=== PATIENT | female | born 1965 | race Caucasian/White ===

== ENCOUNTER → 2016-11-24 | Outpatient (CLI) | payer BC ==
--- NOTE | 2016-11-25 13:59 | MM ---
Reason for exam: screening (asymptomatic). Last mammogram was performed 1 year and 1 month ago. History: Family history of breast cancer in maternal aunt at age 40. Taking hormonal contraceptives for 8 years beginning at age 40. Physical Findings: A clinical breast exam by your physician is recommended on an annual basis and results should be correlated with mammographic findings. MG Screening Mammo w CAD Bilateral CC and MLO view(s) were taken. Prior study comparison: October 17, 2015, right breast MG 3d diag mammo w/cad RT. November 09, 2014, bilateral MG screening mammo w CAD. No significant changes when compared with prior studies. ASSESSMENT: Benign, BI-RAD 2 RECOMMENDATION: Routine screening mammogram of both breasts in 1 year.
== END | disposition home or self-care (01) ==
LOC: RADMAMWWP 08:14
PROVIDERS: ATTEND Family Medicine
DX: Z12.31 Encounter for screening mammogram for malignant neoplasm of breast (principal)

== ENCOUNTER → 2017-06-03 | Outpatient (CLI) | payer BC ==
--- NOTE | 2017-06-03 13:14 | US ---
EXAMINATION TYPE: US venous doppler duplex LE RT DATE OF EXAM: 06/03/2017 12:39 PM COMPARISON: NONE CLINICAL HISTORY: I82.531 DVT. Right calf pain SIDE PERFORMED: Right TECHNIQUE: The lower extremity deep venous system is examined utilizing real time linear array sonog imtiaz with graded compression, doppler sonography and color-flow sonography. VESSELS IMAGED: External Iliac Vein (EIV) Common Femoral Vein Deep Femoral Vein Greater Saphenous Vein * Femoral Vein Popliteal Vein Small Saphenous Vein * Proximal Calf Veins (* superficial vessels) Right Leg: Appears negative for DVT Grayscale, color doppler, spectral doppler imaging performed of the deep veins of the right lower ext remity. There is normal flow, compressibility, vascular waveforms. IMPRESSION: No ultrasound evidence for acute DVT in the right lower extremity.
== END | disposition home or self-care (01) ==
LOC: RADUSWWP 12:11
PROVIDERS: ATTEND Family Medicine
DX: I82.531 Chronic embolism and thrombosis of right popliteal vein (principal)

== ENCOUNTER → 2018-02-03 | Outpatient (CLI) | payer BC ==
--- NOTE | 2018-02-03 13:44 | MM ---
Reason for exam: screening (asymptomatic). Last mammogram was performed 1 year and 2 months ago. History: Family history of breast cancer in maternal aunt at age 40. Taking hormonal contraceptives for 8 years beginning at age 40. Physical Findings: A clinical breast exam by your physician is recommended on an annual basis and results should be correlated with mammographic findings. MG Screening Mammo w CAD Bilateral CC and MLO view(s) were taken. Prior study comparison: November 24, 2016, bilateral MG screening mammo w CAD. October 17, 2015, right breast MG 3d diag mammo w/cad RT. The breast tissue is heterogeneously dense. This may lower the sensitivity of mammography. Finding: There is a 8 mm equal density (isodense), indistinct round mass located 9 cm from the nipple in the upper outer quadrant, middle position of the right breast. New finding since November 24, 2016 and October 17, 2015. ASSESSMENT: Incomplete: need additional imaging evaluation, BI-RAD 0 RECOMMENDATION: Special view mammogram of the right breast. If lesion persists on supplemental views, image directed ultrasound is recommended. [facility] will attempt to contact patient to return for supplemental views and ultrasound if indicated.
== END | disposition home or self-care (01) ==
LOC: RADMAMWWP 06:58
PROVIDERS: ATTEND Family Medicine
DX: Z12.31 Encounter for screening mammogram for malignant neoplasm of breast (principal)
CPT/HCPCS: 77067

== ENCOUNTER → 2018-02-11 | Outpatient (CLI) | payer BC ==
--- NOTE | 2018-02-11 10:08 | MM ---
Reason for exam: additional evaluation requested from abnormal screening. Last mammogram was performed less than 1 month ago. History: Family history of breast cancer in maternal aunt at age 40. Taking hormonal contraceptives for 8 years beginning at age 40. Physical Findings: Nurse did not find any significant physical abnormalities on exam. MG 3D Work Up W/Cad RT Spot compression CC, spot compression MLO, CC with magnification, MLO with magnification, and ML view(s) were taken of the right breast. Prior study comparison: February 03, 2018, bilateral MG screening mammo w CAD. November 24, 2016, bilateral MG screening mammo w CAD. The breast tissue is heterogeneously dense. This may lower the sensitivity of mammography. On additional views the more anterior focal asymmetry resolves however the more posterior right upper outer quadrant middle depth focal asymmetry persists 9cm from nipple. These results were verbally communicated with the patient and result sheet given to the patient on 02/11/18. ASSESSMENT: Incomplete: need additional imaging evaluation, BI-RAD 0 RECOMMENDATION: Ultrasound of the right breast. (upper outer quadrant)
--- NOTE | 2018-02-11 10:36 | USB ---
Reason for exam: additional evaluation requested from abnormal screening. History: Family history of breast cancer in maternal aunt at age 40. Taking hormonal contraceptives for 8 years beginning at age 40. US Breast Workup Limited RT Right limited breast ultrasound including focal area of concern, retroareolar and axilla demonstrates a 6mm dilated duct at 9 o'clock. Additional 3D spot CC/MLO views demonstrate the focal asymmetry to resolve on MLO however they improve on CC and therefore precautionary 6 month follow up recommended. These results were verbally communicated with the patient and result sheet given to the patient on 02/11/18. ASSESSMENT: Probably benign, BI-RAD 3 RECOMMENDATION: Follow-up diagnostic mammogram of the right breast in 6 months.
== END | disposition home or self-care (01) ==
LOC: RADMAMWWP 07:00
PROVIDERS: ATTEND Family Medicine
DX: R92.8 Other abnormal and inconclusive findings on diagnostic imaging of breast (principal)
CPT/HCPCS: 77061; 77065

== ENCOUNTER 2018-09-19 11:25 | Emergency (ER) | payer BC ==
[2018-09-19 11:38] VITALS: BP 127/83; PULSE 75; RESP 20; TEMP 98.1
--- NOTE | 2018-09-19 12:40 | XR ---
EXAMINATION TYPE: XR finger RT , 3 VIEWS DATE OF EXAM ORDERED: 09/19/2018 HISTORY: Pain. COMPARISON: None. FINDINGS: No fracture or dislocation is seen. There is mild flexion in all projections of the DIP orion int of the long finger. This may relate to tendinous injury. IMPRESSION: NO ACUTE OSSEOUS LESION.
[2018-09-19] MEDS ORDERED: ACET/COD 300 MG/30 MG STARTER PACK 6 TAB BTL PO STA (12:51)
--- NOTE | 2018-09-19 12:53 | ED ---
Upper Extremity HPI - General Chief Complaint: Extremity Injury, Upper Stated Complaint: finger injury Time Seen by Provider: 09/19/18 11:50 Source: patient, RN notes reviewed Mode of arrival: wheelchair Limitations: no limitations - History of Present Illness Initial Comments: 52-year-old female presents emergency Department chief complaint of right hand middle finger injury. Patient states that she went down to grab her laundry basket and states that she hyperextended it. Patient states that she cannot move the distal portion of her finger. Patient denies any prior injuries. She is right-hand dominant. Patient states that the pain radiates up into her MCP region. - Related Data Home Medications Medication Instructions Recorded Confirmed Atorvastatin [Lipitor] 20 mg PO DAILY 01/23/15 01/25/15 Metoprolol Tartrate 25 mg PO DAILY 01/23/15 01/25/15 Multivit,Ca,Min/D3/Herbal #181 1 tab PO DAILY 01/23/15 01/25/15 [Estroven (Day or Night)] Spironolactone 50 mg PO DAILY 01/23/15 01/25/15 medroxyPROGESTERone [Depo-Provera] 150 mg IM ONCE 01/23/15 01/25/15 Previous Rx's Medication Instructions Recorded HYDROcodone/APAP 7.5-325MG [[place] 1 - 2 each PO Q6HR PRN #60 tab 01/25/15 7.5] Allergies Allergy/AdvReac Type Severity Reaction Status Date / Time No Known Allergies Allergy Verified 01/23/15 14:53 Review of Systems ROS Statement: Those systems with pertinent positive or pertinent negative responses have been documented in the HPI. ROS Other: All systems not noted in ROS Statement are negative. Past Medical History Past Medical History: Hyperlipidemia, Hypertension, Neurologic Disorder Additional Past Medical History / Comment(s): HX MIGRAINES. OCCASSIONAL HEART ARRTHYMIA History of Any Multi-Drug Resistant Organisms: None Reported Past Surgical History: Back Surgery Past Anesthesia/Blood Transfusion Reactions: Motion Sickness, Postoperative Nausea & Vomiting (PONV) Past Psychological History: No Psychological Hx Reported Smoking Status: Never smoker Past Alcohol Use History: Occasional Past Drug Use History: None Reported - Past Family History Mother Family Medical History: No Reported History General Exam Limitations: no limitations General appearance: alert, in no apparent distress Head exam: Present: atraumatic, normocephalic, normal inspection Eye exam: Present: normal appearance, PERRL, EOMI. Absent: scleral icterus, conjunctival injection, periorbital swelling Neck exam: Present: normal inspection, full ROM. Absent: tenderness, meningismus, lymphadenopathy Respiratory exam: Present: normal lung sounds bilaterally. Absent: respiratory distress, wheezes, rales, rhonchi, stridor Cardiovascular Exam: Present: regular rate, normal rhythm, normal heart sounds. Absent: systolic murmur, diastolic murmur, rubs, gallop, clicks Extremities exam: Present: other (Right hand third digit there is tenderness diffusely, there is no movement of the distal tip) Skin exam: Present: warm, dry, intact, normal color. Absent: rash Course Vital Signs 09/19/18 11:36 Temperature 98.1 F Pulse Rate 75 Respiratory 20 Rate Blood Pressure 127/83 O2 Sat by Pulse 98 Oximetry Medical Decision Making - Medical Decision Making 52-year-old female presented for right hand injury. Patient has a tendon rupture of her third digit. Patient was placed in a finger splint and mild hyper extension. Patient will follow-up with orthopedics return for any worsening symptoms. Disposition Clinical Impression: Rupture of tendon of finger Disposition: HOME SELF-CARE Condition: Stable Instructions: Tendon Rupture (ED) Additional Instructions: Please return to the Emergency Department if symptoms worsen or any other concerns. Is patient prescribed a controlled substance at d/c from ED?: No Referrals: Frances Ha DO [Primary Care Provider] - 1-2 days Dennys Moise DO [Doctor of Osteopathic Medicine] - 1-2 days Time of Disposition: 12:53
== END 2018-09-19 13:15 | disposition home or self-care (01) ==
LOC: EC 11:25
DX: S66.512A Strain of intrinsic muscle, fascia and tendon of right middle finger at wrist and hand level, initial encounter (principal); E78.5 Hyperlipidemia, unspecified; I10 Essential (primary) hypertension; Z79.899 Other long term (current) drug therapy; X50.9XXA Other and unspecified overexertion or strenuous movements or postures, initial encounter; Y92.009 Unspecified place in unspecified non-institutional (private) residence as the place of occurrence of the external cause
CPT/HCPCS: 99283

== ENCOUNTER → 2021-03-14 | Outpatient (CLI) | payer BC ==
--- NOTE | 2021-03-15 11:47 | MM ---
Reason for exam: additional evaluation requested from prior study. Last mammogram was performed 3 years and 1 month ago. History: Patient is postmenopausal. Family history of breast cancer in maternal aunt at age 40. Took hormonal contraceptives for 21 years. Physical Findings: Nurse did not find any significant physical abnormalities on exam. MG Diagnostic Mammo w CAD AURE Bilateral CC, MLO, XCCL, and spot compression LM view(s) were taken. Spot compression XCCL view(s) were taken of the left breast. Prior study comparison: February 11, 2018, right breast MG 3d work up w/cad RT. February 03, 2018, bilateral MG screening mammo w CAD. Right breast 11mm nodule at 10-11 o'clock, 12cm from nipple. Left multiple stable nodules. These results were verbally communicated with the patient and result sheet given to the patient on 03/14/21. ASSESSMENT: Incomplete: need additional imaging evaluation, BI-RAD 0 RECOMMENDATION: Ultrasound of the right breast.
--- NOTE | 2021-03-15 11:50 | USB ---
Reason for exam: additional evaluation requested from abnormal screening. History: Patient is postmenopausal. Family history of breast cancer in maternal aunt at age 40. Took hormonal contraceptives for 21 years. US Breast Limited RT Technologist: Kaelyn Spencer Right limited breast ultrasound including focal area of concern, retroareolar and axilla demonstrates a 1.0 x 0.8 x 0.6cm cystic, simple cyst at 10 o'clock, benign appearing duct ectasia at the nipple and a 1.1 x 1.0 x 0.8cm hypoechoic, solid appearing lesion at 10 o'clock, suspicious, biopsy recommended. These results were verbally communicated with the patient and result sheet given to the patient on 03/14/21. ASSESSMENT: Suspicious, BI-RAD 4 RECOMMENDATION: Ultrasound core biopsy of the right breast. 10 o'clock, if negative 6 month follow up diagnostic mammogram recommended for vague nodularity. Called Dr. Ha's office with mammographic findings and has scheduled an appointment for the patient for 05/02/21 at 8:[address] Bauman. Biopsy scheduled for 03/28/21 at 1:00. PRELIMINARY REPORT CALLED AND FAXED TO DR. BAUMAN ON 03/15/21.
== END | disposition home or self-care (01) ==
LOC: RADMAMWWP 08:51
PROVIDERS: ATTEND Family Medicine
DX: N63.11 Unspecified lump in the right breast, upper outer quadrant (principal); Z78.0 Asymptomatic menopausal state; Z80.3 Family history of malignant neoplasm of breast; Z79.3 Long term (current) use of hormonal contraceptives
CPT/HCPCS: 77066

== ENCOUNTER → 2021-03-28 | Day surgery (SDC) | payer BC ==
[2021-03-28 12:42] VITALS: BP 118/66; PULSE 112; RESP 16; TEMP 98.3
--- NOTE | 2021-03-28 14:36 | MM ---
Reason for exam: additional evaluation requested from abnormal screening. Last mammogram was performed less than 1 month ago. History: Patient is postmenopausal. Family history of breast cancer in maternal aunt at age 40. Took hormonal contraceptives for 21 years. MG 3D Work Up W/Cad RT Spot compression CC, spot compression MLO, and LM view(s) were taken of the right breast. Prior study comparison: March 14, 2021, bilateral MG diagnostic mammo w CAD AURE. February 11, 2018, right breast MG 3d work up w/cad RT. February 03, 2018, bilateral MG screening mammo w CAD. The breast tissue is heterogeneously dense. This may lower the sensitivity of mammography. No significant mass or distortion at the site of skin marker. These results were verbally communicated with the patient and result sheet given to the patient on 03/28/21. ASSESSMENT: Probably benign, BI-RAD 3 RECOMMENDATION: Ultrasound of the right breast in 6 months.
--- NOTE | 2021-03-29 09:59 | USB ---
Right breast ultrasound INDICATION: Abnormal prior exam COMPARISON: 03/14/2021 FINDINGS: The right breast was scanned with ultrasound at 10:00 in the region of patient's prior abnormality. T here is no definite irregular hypoechoic lesion. There is an area of shadowing, likely due to tissue interface, of which there are many throughout the right breast. IMPRESSION: The previous area of concern, likely represents shadowing due to tissue interface. Right diagnostic m ammogram with 3-D imaging with skin marker placed at the site of concern under ultrasound guidance is recommended. BI-RADS 0, incomplete.
== END ==
LOC: RADUSWWP 12:30
PROVIDERS: ATTEND Surgery
DX: R92.8 Other abnormal and inconclusive findings on diagnostic imaging of breast (principal); Z78.0 Asymptomatic menopausal state; Z80.3 Family history of malignant neoplasm of breast
CPT/HCPCS: 77061; 77065

== ENCOUNTER → 2021-08-27 | Outpatient (CLI) | payer BC ==
[2021-08-27 15:14] LABS: HGB 14.9 g/dL (12.0-15.0); MCH 29.1 pg (27.0-32.0); MCHC 31.7 g/dL (32.0-37.0); MCV 91.8 fL (80.0-97.0); Mean Platelet Volume 10.8 fL (9.5-12.2); Platelet Count 254 X 10*3/uL (140-440); RBC 5.12 X 10*6/uL (4.10-5.20); RDW 12.9 % (11.5-14.5); WBC 7.39 X 10*3/uL (4.50-10.00)
[2021-08-27 19:39] LABS: African American GFR (CKD) 72.9 (60.0-200.0); Anion Gap 14.9 mmol/L (10.00-18.00); BUN/Creat Ratio 17.1 Ratio (12.00-20.00); Blood Urea Nitrogen 17.1 mg/dL (9.0-27.0); Calcium 9.7 mg/dL (8.7-10.3); Carbon Dioxide 24.1 mmol/L (20.0-27.5); Non-African American GFR(CKD) 62.9 (60.0-200.0); Potassium 4.3 mmol/L (3.5-5.5)
== END | disposition home or self-care (01) ==
LOC: LABWHC1 11:00
PROVIDERS: ATTEND Internal Medicine Cardiovascular Disease
DX: I48.91 Unspecified atrial fibrillation (principal); I48.92 Unspecified atrial flutter
CPT/HCPCS: 36415; 80048; 84443; 85027

== ENCOUNTER 2022-03-19 05:47 | Emergency (ER) | payer BC ==
[2022-03-19 06:02] VITALS: BP 110/70; PULSE 77; RESP 19; TEMP 98.9
--- NOTE | 2022-03-19 06:24 | XR ---
EXAMINATION TYPE: XR KUB DATE OF EXAM: 03/19/2022 6:20 AM CLINICAL HISTORY: Pain and constipation. TECHNIQUE: Two Upright KUB images of the abdomen are obtained. COMPARISON: None. FINDINGS: Scattered gas is seen in non-distended small bowel loops. Gas and fecal material is seen in non-distended colon. There is no visceromegaly, pneumoperitoneum, or abnormal calcification apprecia chaz. The lung bases are clear and the osseous structures are intact. IMPRESSION: Overall nonobstructive bowel gas pattern.
[2022-03-19] MEDS ORDERED: SODIUM CHLORIDE 0.9% 1,000 ML IV STA (06:44)
--- NOTE | 2022-03-19 06:59 | ED ---
Abdominal Pain HPI - General Chief Complaint: Abdominal Pain Stated Complaint: Constipation Time Seen by Provider: 03/19/22 06:04 Source: patient, RN notes reviewed Mode of arrival: ambulatory Limitations: no limitations - History of Present Illness Initial Comments: This a 56-year-old female presents emergency Department chief complaint of abdominal pain. Patient states she's been having increasing abdominal pain over the last 1 week. Patient states she's felt constipated has not had much more bowel movement. She states she's had small output up until yesterday. In states that she's tried multiple packets of MiraLAX and tried a Fleet enema with no relief. Patient denies any fevers chills. She states pain is worsened left lower quadrant. No history of bowel infections no prior abdominal surgeries. She has no dysuria no hematuria she has been she has chronic back pain but does not take any narcotic pain meds. Patient denies any dysuria, hematuria and no other associated complaints. - Related Data Home Medications Medication Instructions Recorded Confirmed Atorvastatin [Lipitor] 20 mg PO DAILY 01/23/15 03/19/22 Metoprolol Tartrate 25 mg PO DAILY 01/23/15 03/19/22 Spironolactone 50 mg PO DAILY 01/23/15 03/19/22 Aspirin EC [Ecotrin Low Dose] 81 mg PO DAILY 09/19/18 03/19/22 Propafenone [Rythmol] 150 mg PO TID 09/19/18 03/19/22 SUMAtriptan succinate [Imitrex] 100 mg PO DAILY PRN 09/19/18 03/19/22 C,E,Zinc,Copper 11/Ljaup8u/Lut 1 cap PO DAILY 03/15/21 03/19/22 [Ocuvite Adult 50 Plus Softgel] ALPRAZolam [Xanax] 0.25 mg PO DAILY PRN 03/19/22 03/19/22 Acetaminophen [Tylenol Arthritis] 650 mg PO DAILY PRN 03/19/22 03/19/22 Cholecalciferol [Vitamin D3 (125 125 mcg PO DAILY 03/19/22 03/19/22 Mcg = 5000 Iu)] Cyclobenzaprine [Flexeril] 10 mg PO DAILY PRN 03/19/22 03/19/22 Ibuprofen [Motrin] 800 mg PO Q8H PRN 03/19/22 03/19/22 Magnesium Oxide [Magnesium] 500 mg PO DAILY PRN 03/19/22 03/19/22 SUMAtriptan succinate [Imitrex] 6 mg SQ DAILY PRN 03/19/22 03/19/22 hydrOXYzine pamoate 50 mg PO DAILY PRN 03/19/22 03/19/22 Allergies Allergy/AdvReac Type Severity Reaction Status Date / Time enalapril Allergy Unknown Verified 03/19/22 07:21 sulfamethoxazole Allergy Rash/Hives Verified 03/19/22 07:21 [From Bactrim] trimethoprim [From Bactrim] Allergy Rash/Hives Verified 03/19/22 07:21 Review of Systems ROS Statement: Those systems with pertinent positive or pertinent negative responses have been documented in the HPI. ROS Other: All systems not noted in ROS Statement are negative. Past Medical History Past Medical History: Hyperlipidemia, Hypertension, Neurologic Disorder Additional Past Medical History / Comment(s): HX MIGRAINES. OCCASSIONAL HEART ARRTHYMIA. left bundle branch, right bundle branch block. degenerative eye, early on History of Any Multi-Drug Resistant Organisms: None Reported Past Surgical History: Back Surgery, Joint Replacement Additional Past Surgical History / Comment(s): Left knee ACL repair Past Anesthesia/Blood Transfusion Reactions: Motion Sickness, Postoperative Nausea & Vomiting (PONV) Past Psychological History: Anxiety Smoking Status: Never smoker Past Alcohol Use History: Occasional Past Drug Use History: None Reported - Past Family History Mother Family Medical History: No Reported History, CVA/TIA, Dementia General Exam Limitations: no limitations General appearance: alert, in no apparent distress Head exam: Present: atraumatic, normocephalic, normal inspection Eye exam: Present: normal appearance, PERRL, EOMI. Absent: scleral icterus, conjunctival injection, periorbital swelling ENT exam: Present: normal exam, normal oropharynx, mucous membranes moist Neck exam: Present: normal inspection. Absent: tenderness, meningismus, lymphadenopathy Respiratory exam: Present: normal lung sounds bilaterally. Absent: respiratory distress, wheezes, rales, rhonchi, stridor Cardiovascular Exam: Present: regular rate, normal rhythm, normal heart sounds. Absent: systolic murmur, diastolic murmur, rubs, gallop, clicks GI/Abdominal exam: Present: soft, tenderness (Mild left lower quadrant), normal bowel sounds. Absent: distended, guarding, rebound, rigid Back exam: Absent: CVA tenderness (R), CVA tenderness (L) Neurological exam: Present: alert Skin exam: Present: warm, dry, intact, normal color. Absent: rash Course Vital Signs 03/19/22 05:57 Temperature 98.9 F Pulse Rate 77 Respiratory 19 Rate Blood Pressure 110/70 O2 Sat by Pulse 97 Oximetry Medical Decision Making - Medical Decision Making 56-year-old female presents emergency department for constipation Issues. She was not significant workup was does include labs and CT after she was evidence of diverticulosis no significant white count. Patient does have some moderate stool burden primarily upper colon. Patient will be given magnesium citrate denies increase fluids, increase fiber source. Return parameters were discussed. - Lab Data Result diagrams: 03/19/22 07:03 03/19/22 07:03 Lab Results 03/19/22 03/19/22 03/19/22 Range/Units 07:03 07:03 07:03 WBC 9.3 (3.8-10.6) k/uL RBC 4.94 (3.80-5.40) m/uL Hgb 15.2 (11.4-16.0) gm/dL Hct 45.1 (34.0-46.0) % MCV 91.3 (80.0-100.0) fL MCH 30.7 (25.0-35.0) pg MCHC 33.6 (31.0-37.0) g/dL RDW 12.8 (11.5-15.5) % Plt Count 251 (150-450) k/uL MPV 8.3 Neutrophils % 73 % Lymphocytes % 19 % Monocytes % 4 % Eosinophils % 2 % Basophils % 1 % Neutrophils # 6.8 (1.3-7.7) k/uL Lymphocytes # 1.8 (1.0-4.8) k/uL Monocytes # 0.4 (0-1.0) k/uL Eosinophils # 0.2 (0-0.7) k/uL Basophils # 0.1 (0-0.2) k/uL Sodium 139 (137-145) mmol/L Potassium 4.2 (3.5-5.1) mmol/L Chloride 104 (98-107) mmol/L Carbon Dioxide 26 (22-30) mmol/L Anion Gap 9 mmol/L BUN 13 (7-17) mg/dL Creatinine 0.87 (0.52-1.04) mg/dL Est GFR (CKD-EPI)AfAm 86 (>60 ml/min/1.73 sqM) Est GFR (CKD-EPI)NonAf 74 (>60 ml/min/1.73 sqM) Glucose 131 H (74-99) mg/dL Plasma Lactic Acid Brandon 1.7 (0.7-2.0) mmol/L Calcium 9.2 (8.4-10.2) mg/dL Total Bilirubin 0.8 (0.2-1.3) mg/dL AST 24 (14-36) U/L ALT 22 (4-34) U/L Alkaline Phosphatase 123 (38-126) U/L Total Protein 7.5 (6.3-8.2) g/dL Albumin 4.3 (3.5-5.0) g/dL Amylase 52 (30-110) U/L Lipase 107 (23-300) U/L Disposition Clinical Impression: Abdominal pain, Constipation Disposition: HOME SELF-CARE Condition: Stable Instructions (If sedation given, give patient instructions): Constipation (ED), High Fiber Diet (ED) Additional Instructions: Please return to the Emergency Department if symptoms worsen or any other concerns. Is patient prescribed a controlled substance at d/c from ED?: No Referrals: Frances Ha DO [Primary Care Provider] - 1-2 days Time of Disposition: 08:17
[2022-03-19 07:16] LABS: Basophils # (A) 0.1 k/uL (0-0.2); Basophils % (A) 1 %; Eosinophils # (A) 0.2 k/uL (0-0.7); Eosinophils % (A) 2 %; HCT 45.1 % (34.0-46.0); HGB 15.2 gm/dL (11.4-16.0); Lymphocytes # (A) 1.8 k/uL (1.0-4.8); Lymphocytes % (A) 19 %; MCH 30.7 pg (25.0-35.0); MCHC 33.6 g/dL (31.0-37.0); MCV 91.3 fL (80.0-100.0); Mean Platelet Volume 8.3; Monocytes # (A) 0.4 k/uL (0-1.0); Monocytes % (A) 4 %; Neutrophils # (A) 6.8 k/uL (1.3-7.7); Neutrophils % (A) 73 %; Platelet Count 251 k/uL (150-450); RBC 4.94 m/uL (3.80-5.40); RDW 12.8 % (11.5-15.5); WBC 9.3 k/uL (3.8-10.6)
[2022-03-19 07:37] LABS: Albumin 4.3 g/dL (3.5-5.0); Calcium 9.2 mg/dL (8.4-10.2); Potassium 4.2 mmol/L (3.5-5.1); Total Bilirubin 0.8 mg/dL (0.2-1.3); Total Protein 7.5 g/dL (6.3-8.2)
--- NOTE | 2022-03-19 08:00 | CT ---
EXAMINATION TYPE: CT abdomen pelvis wo con CT DLP: 1483.4 mGycm, Automated exposure control for dose reduction was used. DATE OF EXAM: 03/19/2022 7:44 AM COMPARISON: CT abdomen pelvis most recent from . CLINICAL INDICATION:Female, 56 years old with history of abdominal pain; Abdominal pain. NO bowel mov ement for 1 week TECHNIQUE: Standard CT of the abdomen and pelvis following the administration of 100 cc of Isovue 3 00 IV contrast material. Coronal and sagittal reformats were performed. FINDINGS: LOWER CHEST: Unremarkable ABDOMEN LIVER: Unremarkable GALLBLADDER AND BILE DUCTS: Unremarkable. PANCREAS: Unremarkable. SPLEEN: Unremarkable. ADRENAL GLANDS: Unremarkable. KIDNEYS AND URETERS: No evidence of hydronephrosis or renal calculus. Left renal cyst measuring up to 4.5 cm. PELVIS BLADDER: Unremarkable REPRODUCTIVE: Unremarkable. ABDOMEN & PELVIS STOMACH AND BOWEL: No evidence of bowel obstruction. Appendix is normal. There is a large stool joby en throughout the colon. Multiple colonic diverticula are present. PERITONEUM: No evidence of pneumoperitoneum or free fluid. VASCULATURE: No evidence of aortic aneurysm. MUSCULOSKELETAL: No acute osseous abnormalities. Mild disc degeneration changes are present throughou t the thoracolumbar spine. LYMPH NODES: No gross evidence for lymphadenopathy. SOFT TISSUE/ABDOMINAL WALL: Unremarkable IMPRESSION: 1. No evidence acute abdominal process. 2. Moderate stool burden throughout the colon. 3. Colonic diverticulosis.
[2022-03-19] MEDS ORDERED: MAGNESIUM CITRATE 296 ML BOTTLE PO ONE (08:16)
== END 2022-03-19 08:33 | disposition home or self-care (01) ==
LOC: EC 05:47
DX: K59.00 Constipation, unspecified (principal); R10.32 Left lower quadrant pain; I10 Essential (primary) hypertension; E78.5 Hyperlipidemia, unspecified; F41.9 Anxiety disorder, unspecified; Z79.82 Long term (current) use of aspirin; Z79.899 Other long term (current) drug therapy
CPT/HCPCS: 36415; 74018; 74176; 80053; 82150; 83605; 83690; 85025

== ENCOUNTER 2022-06-06 10:00 | Day surgery (SDC) | payer BC ==
[2022-06-05 09:05] VITALS: BMI 40.6
[~2022-06-06 10:00] MED LIST: LACTATED RINGERS 1,000 ML IV SCH; LIDOCAINE 1% (10MG/ML) FOR IV START INTRADERMA PRN
[2022-06-06 11:12] VITALS: RESP 16; TEMP 96.5
[2022-06-06] MEDS ORDERED: LIDOCAINE 2% INJ 20 MG/ML (2 ML VIAL) ONE (12:01)
[2022-06-06] MEDS ORDERED: PROPOFOL 10 MG/ML 20 ML VIAL IV ONE (12:01)
[2022-06-06] MEDS ORDERED: ONDANSETRON 4 MG/2 ML VIAL ONE (12:01)
--- NOTE | 2022-06-06 12:23 | P.PCN ---
Date of Procedure: 06/06/22 Procedure(s) Performed: BRIEF HISTORY: Patient is a 56-year-old pleasant female scheduled for an elective colonoscopy as a part of screening for colorectal neoplasia. PROCEDURE PERFORMED: Colonoscopy. PREOPERATIVE DIAGNOSIS: Screening for colon cancer. IV sedation per Anesthesia. PROCEDURE: After informed consent was obtained, the patient, was brought into the endoscopy unit. IV sedation was administered by Anesthesia under continuous monitoring. Digital rectal examination was normal. Initially the Olympus CF-160 flexible video colonoscope was then inserted in the rectum, gradually advanced into the cecum without any difficulty. Careful examination was performed as the scope was gradually being withdrawn. Ileocecal valve and the appendiceal orifice were visualized and appeared normal. Prep was excellent. Mucosa of the cecum, ascending colon, transverse colon, descending colon, sigmoid colon, and rectum appeared normal. Retroflexion was performed in the rectum and no lesions were seen. Scattered sigmoid diverticulosis. The patient tolerated the procedure well. IMPRESSION: Normal-appearing colon from rectum to cecum no evidence of colorectal neoplasia . Sigmoid diverticulosis RECOMMENDATIONS: Findings of this examination were discussed with the patient surveillance of family. She was advised to have a repeat screening colonoscopy in 10 years..
[2022-06-06 12:50] VITALS: BP 92/61; PULSE 73
== END 2022-06-06 13:15 | disposition home or self-care (01) ==
LOC: ORWHC2ENDO 10:00
PROVIDERS: ATTEND Internal Medicine Gastroenterology
DX: Z12.11 Encounter for screening for malignant neoplasm of colon (principal); K57.30 Diverticulosis of large intestine without perforation or abscess without bleeding; I10 Essential (primary) hypertension; E78.5 Hyperlipidemia, unspecified; I48.91 Unspecified atrial fibrillation; K21.9 Gastro-esophageal reflux disease without esophagitis; F41.9 Anxiety disorder, unspecified; G43.909 Migraine, unspecified, not intractable, without status migrainosus; Z88.0 Allergy status to penicillin
CPT/HCPCS: 45378; J2405; J2704; J2001

== ENCOUNTER → 2022-12-15 | Outpatient (CLI) | payer BC ==
--- NOTE | 2022-12-16 09:23 | MM ---
Reason for Exam: Screening (asymptomatic). Last mammogram was performed 1 year(s) and 9 month(s) ago. Patient History: Menarche at age 12. First Full-Term at age 22. Postmenopausal. Patient has history of breast feeding. Patient used Hormonal Contraceptives for 21 years. 03/28/2021, US discontinued breast bx RT on the right side. Maternal aunt had breast cancer, age 40. Risk Values: Alejandra 5 year model risk: 1.2%. NCI Lifetime model risk: 6.9%. Prior Study Comparison: 02/11/2018 Right Diagnostic Mammogram, [facility]. 03/14/2021 Bilateral Diagnostic Mammogram, [facility]. 03/28/2021 Right Diagnostic Mammogram, [facility]. Tissue Density: The breast tissue is heterogeneously dense. This may lower the sensitivity of mammography. Findings: Analyzed By CAD. There is no suspicious group of microcalcifications or new suspicious mass in either breast. Chronic nodularity within both breasts. Overall Assessment: Benign, BI-RAD 2 Management: Screening Mammogram of both breasts in 1 year. A clinical breast exam by your physician is recommended on an annual basis and results should be correlated with mammographic findings. Electronically signed and approved by: Ramin Hensley D.O.
== END | disposition home or self-care (01) ==
LOC: RADMAMWWP 15:42
PROVIDERS: ATTEND Family Medicine
DX: Z12.31 Encounter for screening mammogram for malignant neoplasm of breast (principal); Z80.3 Family history of malignant neoplasm of breast; Z78.0 Asymptomatic menopausal state
CPT/HCPCS: 77067

== ENCOUNTER 2023-09-17 21:08 | Emergency (ER) | payer BC ==
[2023-09-17 21:24] VITALS: TEMP 98
[2023-09-17] MEDS ORDERED: FAMOTIDINE 20 MG/2 ML VIAL IV STA (21:31)
[2023-09-17] MEDS ORDERED: diphenhydrAMINE 50 MG/ML 1 ML VIAL IVP STA (21:31)
[2023-09-17] MEDS ORDERED: SODIUM CHLORIDE 0.9% 1,000 ML IV STA (21:31)
[2023-09-17] MEDS ORDERED: methylPREDNISolone SOD SUCCI 125 MG/2 ML VIAL IV STA (21:31)
[2023-09-17 22:19] LABS: Basophils % (A) 1 %; Eosinophils # (A) 0.3 k/uL (0-0.7); Eosinophils % (A) 5 %; HCT 44.7 % (34.0-46.0); HGB 14.8 gm/dL (11.4-16.0); Lymphocytes % (A) 36 %; MCH 30.6 pg (25.0-35.0); MCHC 33.2 g/dL (31.0-37.0); MCV 92.2 fL (80.0-100.0); Mean Platelet Volume 8.2; Monocytes # (A) 0.3 k/uL (0-1.0); Monocytes % (A) 5 %; Neutrophils # (A) 2.8 k/uL (1.3-7.7); Neutrophils % (A) 51 %; Platelet Count 183 k/uL (150-450); RBC 4.85 m/uL (3.80-5.40); RDW 12.9 % (11.5-15.5); WBC 5.4 k/uL (3.8-10.6)
[2023-09-17 22:26] LABS: ALT 31 U/L (4-34); AST 28 U/L (14-36); African American GFR (CKD) >90 (>60 ml/min/1.73 sqM); Albumin 3.9 g/dL (3.5-5.0); Alkaline Phosphatase 109 U/L (38-126); Anion Gap 11 mmol/L; Blood Urea Nitrogen 18 mg/dL (7-17); Carbon Dioxide 27 mmol/L (22-30); Chloride 101 mmol/L (98-107); Glucose 199 mg/dL (74-99); Non-African American GFR(CKD) 84 (>60 ml/min/1.73 sqM); Potassium 4.4 mmol/L (3.5-5.1); Sodium 139 mmol/L (137-145); Total Bilirubin 0.6 mg/dL (0.2-1.3); Total Protein 6.7 g/dL (6.3-8.2)
--- NOTE | 2023-09-17 22:30 | ED ---
General Adult HPI - General Chief complaint: Allergic Reaction Stated complaint: Rash Time Seen by Provider: 09/17/23 21:20 Source: patient, RN notes reviewed Mode of arrival: ambulatory Limitations: no limitations - History of Present Illness Initial comments: 57-year-old female presents to the emergency department for evaluation of rash after taking a dose of Bactrim. She states that she has never taken Bactrim before but noticed 45 minutes after taking this medication a papular rash on bilateral upper extremities and trunk. She states that this is itchy. She states that she has had a rash like this in the past when she was a kid but has not had any recently. She states that because of that she felt like she had a panic attack and was having difficulty breathing which has since improved. She states that she is on a medication for sinusitis. - Related Data Home Medications Medication Instructions Recorded Confirmed Atorvastatin [Lipitor] 20 mg PO DAILY 01/23/15 06/06/22 Metoprolol Tartrate 25 mg PO QAM 01/23/15 06/06/22 Spironolactone 50 mg PO DAILY 01/23/15 06/06/22 Aspirin EC [Ecotrin Low Dose] 81 mg PO DAILY 09/19/18 06/05/22 Propafenone [Rythmol] 150 mg PO TID 09/19/18 06/06/22 SUMAtriptan succinate [Imitrex] 100 mg PO DAILY PRN 09/19/18 06/06/22 C,E,Zinc,Copper 11/Qegpq0e/Lut 1 cap PO DAILY 03/15/21 06/05/22 [Ocuvite Adult 50 Plus Softgel] ALPRAZolam [Xanax] 0.25 mg PO DAILY PRN 03/19/22 06/06/22 Acetaminophen [Tylenol Arthritis] 650 mg PO DAILY PRN 03/19/22 06/06/22 Cholecalciferol [Vitamin D3 (125 125 mcg PO DAILY 03/19/22 06/06/22 Mcg = 5000 Iu)] Cyclobenzaprine [Flexeril] 10 mg PO DAILY PRN 03/19/22 06/06/22 Ibuprofen [Motrin] 800 mg PO Q8H PRN 03/19/22 06/06/22 SUMAtriptan succinate [Imitrex] 6 mg SQ DAILY PRN 03/19/22 06/06/22 hydrOXYzine pamoate 50 mg PO DAILY PRN 03/19/22 06/06/22 Previous Rx's Medication Instructions Recorded Amoxic-Pot Clav 875-125Mg 1 tab PO BID 10 Days #20 tab 09/17/23 [Augmentin 875-125] Famotidine 20 mg PO BID #10 tablet 09/17/23 Allergies Allergy/AdvReac Type Severity Reaction Status Date / Time enalapril Allergy irregular Verified 09/17/23 21:13 heart beat sulfamethoxazole Allergy Rash/Hives Verified 09/17/23 21:13 [From Bactrim] trimethoprim [From Bactrim] Allergy Rash/Hives Verified 09/17/23 21:13 Review of Systems ROS Statement: Those systems with pertinent positive or pertinent negative responses have been documented in the HPI. ROS Other: All systems not noted in ROS Statement are negative. Past Medical History Past Medical History: Hyperlipidemia, Hypertension Additional Past Medical History / Comment(s): change in bowel habits from ls stoos to constipation lasting over a week,. HX Covid infection 2020-still feels SOB at times, MIGRAINES. OCCASSIONAL HEART ARRTHYMIA. left bundle branch, right bundle branch block. degenerative eye disease-early on History of Any Multi-Drug Resistant Organisms: None Reported Past Surgical History: Back Surgery, Orthopedic Surgery Additional Past Surgical History / Comment(s): Left knee ACL repair Past Anesthesia/Blood Transfusion Reactions: Motion Sickness, Postoperative Nausea & Vomiting (PONV) Additional Past Anesthesia/Blood Transfusion Reaction / Comment(s): Severely claustrophobic-uses hand fan, Past Psychological History: Anxiety Smoking Status: Never smoker Past Alcohol Use History: Rare Past Drug Use History: None Reported - Past Family History Mother Family Medical History: CVA/TIA, Dementia General Exam Limitations: no limitations General appearance: alert, in no apparent distress Head exam: Present: atraumatic, normocephalic, normal inspection Eye exam: Present: normal appearance, PERRL, EOMI. Absent: scleral icterus, conjunctival injection, periorbital swelling ENT exam: Present: normal exam, mucous membranes moist Neck exam: Present: normal inspection. Absent: tenderness, meningismus, lymphadenopathy Respiratory exam: Present: wheezes (Mild wheezes throughout). Absent: respiratory distress, rales, rhonchi, stridor, chest wall tenderness, accessory muscle use Cardiovascular Exam: Present: regular rate, normal rhythm, normal heart sounds. Absent: systolic murmur, diastolic murmur, rubs, gallop, clicks GI/Abdominal exam: Present: soft, normal bowel sounds. Absent: distended, tenderness, guarding, rebound, rigid Extremities exam: Present: normal inspection, full ROM, normal capillary refill. Absent: tenderness, pedal edema, joint swelling, calf tenderness Back exam: Present: normal inspection Neurological exam: Present: alert, oriented X3 Psychiatric exam: Present: normal affect, normal mood Skin exam: Present: warm, dry, intact, rash (Mildly erythematous papular rash in bilateral upper extremities and trunk). Absent: normal color, urticaria Course Vital Signs 09/17/23 09/17/23 21:10 23:27 Temperature 98.0 F Pulse Rate 84 80 Respiratory 17 18 Rate Blood Pressure 151/85 142/78 O2 Sat by Pulse 95 97 Oximetry Medical Decision Making - Medical Decision Making Was pt. sent in by a medical professional or institution (, PA, SUPERVISOR PHOTOCOMPOSITION, urgent care, hospital, or care home...) When possible be specific @ -No Did you speak to anyone other than the patient for history (EMS, parent, family, police, friend...)? What history was obtained from this source @ -No Did you review nursing and triage notes (agree or disagree)? Why? @ -I reviewed and agree with nursing and triage notes Were old charts reviewed (outside hosp., previous admission, EMS record, old EKG, old radiological studies, urgent care reports/EKG's, care home records)? Report findings @ -No old charts were reviewed Differential Diagnosis (chest pain, altered mental status, abdominal pain women, abdominal pain men, vaginal bleeding, weakness, fever, dyspnea, syncope, headache, dizziness, GI bleed, back pain, seizure, CVA, palpatations, mental health, musculoskeletal)? @ -ALLERGIC reaction, Anna-Jose Maria syndrome, TEN, urticaria, this list is not all-inclusive EKG interpreted by me (3pts min.). @ -None X-rays interpreted by me (1pt min.). @ -Chest x-ray shows no acute process CT interpreted by me (1pt min.). @ -None done U/S interpreted by me (1pt. min.). @ -None done What testing was considered but not performed or refused? (CT, X-rays, U/S, labs)? Why? @ -None What meds were considered but not given or refused? Why? @ -None Did you discuss the management of the patient with other professionals (professionals i.e. , PA, SUPERVISOR PHOTOCOMPOSITION, lab, RT, psych nurse, social work program coordinator, training generalist, te acher, commercial account officer, telehealth case manager)? Give summary @ -No Was smoking cessation discussed for >3mins.? @ -No Was critical care preformed (if so, how long)? @ -No Were there social determinants of health that impacted care today? How? (Homelessness, low income, unemployed, alcoholism, drug addiction, transportation, low edu. Level, literacy, decrease access to med. care, m[facility], rehab)? @ -No Was there de-escalation of care discussed even if they declined (Discuss DNR or withdrawal of care, Hospice)? DNR status @ -No What co-morbidities impacted this encounter? (DM, HTN, Smoking, COPD, CAD, Cancer, CVA, ARF, Chemo, Hep., AIDS, mental health diagnosis, sleep apnea, morbid obesity)? @ -None Was patient admitted / discharged? Hospital course, mention meds given and rou te, prescriptions, significant lab abnormalities, going to OR and other pertinent info. @ -discharged. Patient presented to the emergency department for evaluation of ALLERGIC reaction. Patient is not in any respiratory distress. No stridor. X- ray of chest obtained which shows no acute process. Laboratory studies were essentially unremarkable. She given a dose of IV Solu-Medrol, Benadryl, Pepcid. Patient reevaluated and her symptoms improved. Patient stable for discharge. Patient understands the above plan. Patient stable at time of discharge. Advised to continue taking Benadryl and Pepcid. Case discussed with Dr. Ha. Undiagnosed new problem with uncertain prognosis? @ -No Drug Therapy requiring intensive monitoring for toxicity (Heparin, Nitro, Insulin, Cardizem)? @ -No Were any procedures done? @ -No Diagnosis/symptom? @ -allergic reaction Acute, or Chronic, or Acute on Chronic? @ -acute Uncomplicated (without systemic symptoms) or Complicated (systemic symptoms)? @ -uncomplicated Side effects of treatment? @ -No Exacerbation, Progression, or Severe Exacerbation? @ -No Poses a threat to life or bodily function? How? (Chest pain, [place], [place], pneumonia, PE, COPD, DKA, ARF, appy, cholecystitis, CVA, Diverticulitis, Homicidal, Suicidal, threat to staff... and all critical care pts) @ -No - Lab Data Result diagrams: 09/17/23 22:07 09/17/23 22:07 Lab Results 09/17/23 09/17/23 Range/Units 22:07 22:07 WBC 5.4 (3.8-10.6) k/uL RBC 4.85 (3.80-5.40) m/uL Hgb 14.8 (11.4-16.0) gm/dL Hct 44.7 (34.0-46.0) % MCV 92.2 (80.0-100.0) fL MCH 30.6 (25.0-35.0) pg MCHC 33.2 (31.0-37.0) g/dL RDW 12.9 (11.5-15.5) % Plt Count 183 (150-450) k/uL MPV 8.2 Neutrophils % 51 % Lymphocytes % 36 % Monocytes % 5 % Eosinophils % 5 % Basophils % 1 % Neutrophils # 2.8 (1.3-7.7) k/uL Lymphocytes # 2.0 (1.0-4.8) k/uL Monocytes # 0.3 (0-1.0) k/uL Eosinophils # 0.3 (0-0.7) k/uL Basophils # 0.0 (0-0.2) k/uL Sodium 139 (137-145) mmol/L Potassium 4.4 (3.5-5.1) mmol/L Chloride 101 (98-107) mmol/L Carbon Dioxide 27 (22-30) mmol/L Anion Gap 11 mmol/L BUN 18 H (7-17) mg/dL Creatinine 0.79 (0.52-1.04) mg/dL Est GFR (CKD-EPI)AfAm >90 (>60 ml/min/1.73 sqM) Est GFR (CKD-EPI)NonAf 84 (>60 ml/min/1.73 sqM) Glucose 199 H (74-99) mg/dL Calcium 9.0 (8.4-10.2) mg/dL Total Bilirubin 0.6 (0.2-1.3) mg/dL AST 28 (14-36) U/L ALT 31 (4-34) U/L Alkaline Phosphatase 109 (38-126) U/L Total Protein 6.7 (6.3-8.2) g/dL Albumin 3.9 (3.5-5.0) g/dL Disposition Clinical Impression: Allergic reaction Disposition: HOME SELF-CARE Condition: Stable Instructions (If sedation given, give patient instructions): General Allergic Reaction (ED) Additional Instructions: Continue taking Benadryl and Pepcid. Please follow up with your primary care provider. Return to the emergency department for new or worsening symptoms. Prescriptions: Amoxic-Pot Clav 875-125Mg [Augmentin 875-125] 1 tab PO BID 10 Days #20 tab Famotidine 20 mg PO BID #10 tablet Is patient prescribed a controlled substance at d/c from ED?: No Referrals: Frances Ha DO [Primary Care Provider] - 1-2 days
--- NOTE | 2023-09-17 22:56 | XR ---
EXAMINATION TYPE: XR chest 2V DATE OF EXAM: 09/17/2023 COMPARISON: 07/02/2010 INDICATION: Dyspnea TECHNIQUE: Single frontal view of the chest is obtained. FINDINGS: The heart size is normal. The pulmonary vasculature is normal. The lungs are clear. IMPRESSION: 1. No acute pulmonary process.
[2023-09-17 23:32] VITALS: BP 142/78; PULSE 80; RESP 18
== END 2023-09-17 23:31 | disposition home or self-care (01) ==
LOC: EC 21:08
DX: R21 Rash and other nonspecific skin eruption (principal); L53.9 Erythematous condition, unspecified; R06.2 Wheezing; T36.8X5A Adverse effect of other systemic antibiotics, initial encounter; I10 Essential (primary) hypertension; F41.9 Anxiety disorder, unspecified; E78.5 Hyperlipidemia, unspecified; Z88.1 Allergy status to other antibiotic agents; Z88.2 Allergy status to sulfonamides; Z88.8 Allergy status to other drugs, medicaments and biological substances; Z79.82 Long term (current) use of aspirin; Z79.899 Other long term (current) drug therapy; Z86.16 Personal history of COVID-19
CPT/HCPCS: 99284; 96374; 96375 ×2; 36415; 80053; 85025; 71046; J1200; J2930; J3490

== ENCOUNTER → 2023-12-30 | Outpatient (CLI) | payer BC ==
--- NOTE | 2023-12-30 08:15 | MM ---
Reason for Exam: Additional evaluation requested from prior study. Last screening mammogram was performed 12 month(s) ago. Patient History: Menarche at age 12. First Full-Term at age 22. Postmenopausal. Patient has history of breast feeding. Patient used Hormonal Contraceptives for 21 years. 03/28/2021, US discontinued breast bx RT on the right side. Maternal aunt had breast cancer, age 40. Risk Values: Alejandra 5 year model risk: 1.2%. NCI Lifetime model risk: 6.7%. Prior Study Comparison: 03/14/2021 Bilateral Diagnostic Mammogram, [facility]. 03/28/2021 Right Diagnostic Mammogram, [facility]. 12/15/2022 Bilateral MG screening mammo w CAD, [facility]. Tissue Density: The breasts are heterogeneously dense, which may obscure small masses. Findings: Analyzed By CAD. The pattern is symmetrical. There is a new ill-defined area of increased density subareolar left breast slightly medial midline not present on prior examinations. Compression views were obtained. Impression no persistent suspicious density is evident. No suspicious groups of microcalcifications, spiculated or lobular masses, architectural distortion or other secondary signs of malignancy are mammographically apparent. Overall Assessment: Benign, BI-RAD 2 Management: Screening Mammogram of both breasts in 1 year. A negative mammogram report should not preclude additional follow up of suspicious palpable abnormalities. Patient should continue monthly self breast exam. A clinical breast exam by your physician is recommended on an annual basis and results should be correlated with mammographic findings. Note on Alejandra scores and lifetime risk: 1. A Alejandra score greater than 3% is considered moderate risk. If this is the case, consider specialist referral to assess eligibility for a risk reducing agent. 2. If overall lifetime risk for the development of breast cancer is 20% or higher, the patient may qualify for future screening with alternating mammogram and breast MRI. Electronically signed and approved by: Mk Uribe D.O. Radiologis
== END | disposition home or self-care (01) ==
LOC: RADMAMWWP 07:42
PROVIDERS: ATTEND Family Medicine
DX: R92.333 Mammographic heterogeneous density, bilateral breasts (principal); Z78.0 Asymptomatic menopausal state; Z80.3 Family history of malignant neoplasm of breast
CPT/HCPCS: 77062; 77066

== ENCOUNTER → 2024-03-15 | Outpatient (CLI) | payer BC ==
--- NOTE | 2024-03-15 16:52 | US ---
EXAMINATION TYPE: US venous doppler duplex LE LT DATE OF EXAM: 03/15/2024 4:32 PM COMPARISON: NONE CLINICAL INDICATION: Female, 58 years old with history of M79.605 PAIN IN LEFT LEG M79.89 SOFT TISSUE DISORD; left lower leg pain x 1 week. No hx of DVT. Takes a baby aspirin daily SIDE PERFORMED: Left TECHNIQUE: The lower extremity deep venous system is examined utilizing real time linear array sonog imtiaz with graded compression, doppler sonography and color-flow sonography. VESSELS IMAGED: Common Femoral Vein Deep Femoral Vein Greater Saphenous Vein * Femoral Vein Popliteal Vein Small Saphenous Vein * Proximal Calf Veins Posterior tibial veins of the mid calf (* superficial vessels) Left Leg: No evidence for DVT IMPRESSION: No evidence for DVT within the left lower extremity imaged from the groin to the mid calf.
== END | disposition home or self-care (01) ==
LOC: RADUSWWP 16:05
PROVIDERS: ATTEND Family Medicine
DX: M79.605 Pain in left leg (principal); M79.89 Other specified soft tissue disorders

== ENCOUNTER → 2025-01-02 | Outpatient (CLI) | payer BC ==
--- NOTE | 2025-01-02 08:36 | MM ---
Reason for Exam: Screening (asymptomatic). Last screening mammogram was performed 12 month(s) ago. Patient History: Menarche at age 12. First Full-Term at age 22. Postmenopausal. Patient has history of breast feeding. Patient used Hormonal Contraceptives for 21 years. 03/28/2021, US discontinued breast bx RT on the right side. Maternal aunt had breast cancer, age 40. Risk Values: Alejandra 5 year model risk: 1.3%. NCI Lifetime model risk: 6.6%. Prior Study Comparison: 02/03/2018 Bilateral Screening Mammogram, [facility]. 02/11/2018 Right Diagnostic Mammogram, [facility]. 03/14/2021 Bilateral Diagnostic Mammogram, [facility]. 03/28/2021 Right Diagnostic Mammogram, [facility]. 12/15/2022 Bilateral MG screening mammo w CAD, [facility]. 12/30/2023 Bilateral MG 3D diag mammo w/cad AURE, [facility]. Tissue Density: The breasts are heterogeneously dense, which may obscure small masses. Findings: Analyzed By CAD. There is no suspicious group of microcalcifications or new suspicious mass in either breast. Overall Assessment: Benign, BI-RAD 2 Management: Screening Mammogram of both breasts in 1 year. . Patient should continue monthly self-breast exams. A clinical breast exam by your physician is recommended on an annual basis. This exam should not preclude additional follow-up of suspicious palpable abnormalities. Note on Alejandra scores and lifetime risk: 1. A Alejandra score greater than 3% is considered moderate risk. If this is the case, consider specialist referral to assess eligibility for a risk reducing agent. 2. If overall lifetime risk for the development of breast cancer is 20% or higher, the patient may qualify for future screening with alternating mammogram and breast MRI. [facility], , 01/02/2025 8:34 AM. Electronically signed and approved by: Mikey Pfeiffer M.D. Radiologis
== END | disposition home or self-care (01) ==
LOC: RADMAMWWP 07:25
PROVIDERS: ATTEND Family Medicine
DX: Z12.31 Encounter for screening mammogram for malignant neoplasm of breast (principal); R92.333 Mammographic heterogeneous density, bilateral breasts; Z78.0 Asymptomatic menopausal state; Z80.3 Family history of malignant neoplasm of breast; Z92.0 Personal history of contraception
CPT/HCPCS: 77063; 77067